=== PATIENT | male | born 1980 | race Caucasian/White ===

== ENCOUNTER 2018-03-12 11:22 | Emergency (ER) | payer OTHER ==
[2018-03-12 11:32] VITALS: BP 138/85
--- NOTE | 2018-03-12 11:57 | EDPHY ---
H & P Time Seen by Provider: 03/12/18 11:56 HPI/ROS: Chief complaint. Hand injury HPI. 37-year-old male presents with injury to his left mid hand. Hurts to move. He was at work 2 days ago and had it crushed between 2 packed shifting boxes. No previous injury to the left hand. He is right handed. The pain is in the hand below the 3rd digit. No other injuries ROS 10 systems were reviewed and negative with the exception of the elements mentioned in the history of present illness Past Medical/Surgical History: Healthy Social History: Single, daily smoker, no alcohol Smoking Status: Current every day smoker Physical Exam: General Appearance: Alert well-developed male mild distress vital signs stable Eyes: Pupils equal and round no pallor or injection. ENT, Mouth: Mucous membranes are moist. Respiratory: There are no retractions, lungs are clear to auscultation. Cardiovascular: Regular rate and rhythm. Gastrointestinal: Abdomen is soft and nontender, no masses, bowel sounds normal. Neurological: Awake and alert, sensory and motor exams grossly normal. Skin: Warm and dry, no rashes. Musculoskeletal: Neck is supple nontender. Extremities left hand is tender along the 3rd metacarpal. There is no obvious swelling or surface trauma. Distal motor vascular sensitivity is intact Psychiatric: Patient is oriented X 3, there is no agitation. Constitutional: Initial Vital Signs Temperature (C) 36.9 C 03/12/18 11:26 Heart Rate 80 03/12/18 11:26 Blood Pressure 138/85 H 03/12/18 11:26 O2 Sat (%) 96 03/12/18 11:26 O2 Delivery Mode Room Air Allergies/Adverse Reactions: No Known Allergies Allergy (Unverified 06/21/12 09:37) Home Medications: Medication Instructions Recorded NK [No Known Home Meds] 03/12/18 Medical Decision Making - Diagnostics Imaging Results: Imaging Impressions Hand X-Ray 03/12/18 11:37 Impression: Nothing acute identified. X-ray left hand interpreted by me is normal ED Course/Re-evaluation: On re-evaluation patient remained stable. He and I discussed imaging study results, treatment plan including criteria for return importance of follow-up and further evaluation. He expresses understanding and agreement Differential Diagnosis: I considered fracture, dislocation, contusion Departure - Departure Disposition: Home, Routine, Self-Care Clinical Impression: Contusion, hand Qualifiers: Encounter type: initial encounter Laterality: left Qualified Code(s): S60.222A - Contusion of left hand, initial encounter Condition: Good Instructions: Contusion in Adults (ED) Additional Instructions: Ibuprofen 600 mg every 6 hr as needed for discomfort. Activity as tolerated. Recheck in 3-4 days if not improved Referrals: NONE *PRIMARY CARE P,. [Primary Care Provider] - As per Instructions Work Comp Referral [facility] [Outside] - 3-4 days, if not improved
== END 2018-03-12 12:17 | disposition home or self-care (01) ==
LOC: CED 11:22
DX: S60.222A Contusion of left hand, initial encounter (principal); F17.200 Nicotine dependence, unspecified, uncomplicated; W23.0XXA Caught, crushed, jammed, or pinched between moving objects, initial encounter; Y99.0 Civilian activity done for income or pay; Y92.9 Unspecified place or not applicable; Y93.9 Activity, unspecified
CPT/HCPCS: 73130-PO

== ENCOUNTER 2018-03-26 07:22 | Emergency (ER) | payer OTHER ==
[2018-03-26 07:46] VITALS: BP 132/83
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
== END 2018-03-26 08:01 | disposition home or self-care (01) ==
LOC: CED 07:22
DX: S16.1XXA Strain of muscle, fascia and tendon at neck level, initial encounter (principal); F17.200 Nicotine dependence, unspecified, uncomplicated; W50.0XXA Accidental hit or strike by another person, initial encounter; Y93.83 Activity, rough housing and horseplay; Y92.9 Unspecified place or not applicable; Y99.9 Unspecified external cause status

== ENCOUNTER 2018-09-02 10:37 | Emergency (ER) | payer OTHER ==
--- NOTE | 2018-09-02 11:33 | EDPHY ---
H & P Stated Complaint: lt finger pain from saw kick back- work comp Time Seen by Provider: 09/02/18 11:05 HPI/ROS: Chief Complaint: Finger injury HPI: 38-year-old male was working using a skill saw when the saw kicked back striking his left index finger. He was struck by the back of the saw, not the blade. He felt a pop in his fingers CT of swelling and pain. He did not sustain any lacerations. ROS: 10 systems were reviewed and were negative except those elements noted in the HPI. PMH: Denies Social History: No smoking, no alcohol, no recreational drug use Family History: non-contributory Physical Exam: General: Awake, alert, no acute distress Left hand: He has swelling over the proximal phalanx with tenderness. No deformity. Decreased flexion extension of his PIP or D AP secondary to pain. No pain or tenderness proximally. Skin: No rash - Personal History Current Tetanus Diphtheria and Acellular Pertussis (TDAP): Yes - Medical/Surgical History Hx Asthma: No Hx Chronic Respiratory Disease: No Hx Diabetes: No Hx Cardiac Disease: No Hx Renal Disease: No Hx Cirrhosis: No Hx Alcoholism: No Hx HIV/AIDS: No Hx Splenectomy or Spleen Trauma: No Other PMH: tonsillitis, past knee surgery. - Social History Smoking Status: Current every day smoker Constitutional: Initial Vital Signs Temperature (C) 36.6 C 09/02/18 10:49 Heart Rate 87 09/02/18 10:49 Respiratory Rate 18 09/02/18 10:49 Blood Pressure 120/66 09/02/18 10:49 O2 Sat (%) 97 09/02/18 10:49 O2 Delivery Mode Room Air Allergies/Adverse Reactions: No Known Allergies Allergy (Verified 03/26/18 07:46) Home Medications: Medication Instructions Recorded Cyclobenzaprine [Flexeril 10 MG 10 mg PO TID PRN #15 tab 03/26/18 (*)] Medical Decision Making - Diagnostics Imaging Results: X-rays consistent with a nondisplaced proximal phalanx fracture. Study interpreted by me. Imaging: I viewed and interpreted images myself ED Course/Re-evaluation: Patient placed in aluminum foam volar finger splint. I have inspected the splint. He has good immobility with normal perfusion and is comfortable. Ice pack is been applied. Will discharge with follow-up with Hand surgery, return for any concerns. Departure - Departure Disposition: Home, Routine, Self-Care Clinical Impression: Finger fracture Condition: Good Instructions: Finger Fracture (ED) Additional Instructions: Follow up with hand surgeon in 4-5 days for further evaluation. Referrals: NONE *PRIMARY CARE P,. [Primary Care Provider] - As per Instructions Jerrod Anderson MD [Medical Doctor] - As per Instructions
[2018-09-02 11:41] VITALS: BP 134/60
== END 2018-09-02 11:39 | disposition home or self-care (01) ==
LOC: CED 10:37
DX: S62.641A Nondisplaced fracture of proximal phalanx of left index finger, initial encounter for closed fracture (principal); W31.2XXA Contact with powered woodworking and forming machines, initial encounter; Y93.89 Activity, other specified
CPT/HCPCS: 73140-PO; 99283-ER; L3925-ER